=== PATIENT | female | born 1995 | race Caucasian/White ===

== ENCOUNTER 2023-10-20 09:04 | Emergency (ER) | payer BC, SELFPAY ==
--- NOTE | 2023-10-20 09:11 | ED.GENADULT ---
HPI - General Adult General Chief complaint: General Medical Stated complaint: ingrown hair l armpit Time Seen by Provider: 10/20/23 09:09 Source: patient Mode of arrival: ambulatory Limitations: no limitations History of Present Illness ED Provider: juani PEREZ narrative: Patient is a 28-year-old female presenting to the emergency department with complaint of pain and swelling to left axilla for the past 4-5 days. States she was seen for same at urgent care and advised to apply warm compresses which she has been doing without relief. States the areas increasing in size and is very painful. She has not attempted to drain the area at home. Denies fevers/chills/body aches. Denies spontaneous drainage from the area. Reports similar episode around 1 month ago, states was not treated with antibiotics at that time. complaint: Left axilla pain and swelling Onset (ago): day(s) Severity: severe Quality: aching Pain Consistency: constant Exacerbating factors: movement Associated symptoms: denies other symptoms Treatments prior to arrival: heat therapy Related Data Previous Rx's ?Medication ?Instructions ?Recorded cephalexin 500 mg capsule 500 mg PO QID #28 caps 10/20/23 Allergies Allergy/AdvReac Type Severity Reaction Status Date / Time shrimp Allergy Hives Verified 10/20/23 09:17 Review of Systems Review of Systems: As per HPI. Yes all other systems are reviewed and are negative Constitutional: Constitutional: Reports as per HPI [facility] Social History Social History Advance Directives: No Advance Directives Information Provided: No Do you have a plan to hurt others: No Plan Physical Exam ED Vital Signs: Vital Signs - 24 hr 10/20/23 09:14 10/20/23 09:18 10/20/23 09:45 Temperature 97.9 F 97.9 F 97.9 F Pulse Rate 70 70 70 Respiratory Rate 14 14 18 Blood Pressure 110/58 L 110/58 L 110/58 L Pulse Oximetry 100 100 100 Oxygen Delivery Method Room Air Room Air Room Air BMI result Body Mass Index 20.6 Vital signs have been reviewed and appear to be correct. Blood pressure normal. Heart rate normal. Respiratory rate normal. Temperature normal. Oxygen saturation normal. Const General: cooperative, healthy appearing and no acute distress Orientation/consciousness: oriented to person, oriented to place, oriented to time and patient oriented x3 Limitations: no limitations HENMT Head: Yes normocephalic and Yes atraumatic Ears: external ears normal General nose exam: Normal external nose present Face and sinus: Yes face symmetric Mouth: oropharynx normal and moist mucous membranes Throat: Yes uvula midline Eyes Pupils: Equal, round and reactive pupils present Neck Neck: Yes normal visual inspection and Yes supple Chest Chest/axillae images: 1. 2cm erythematous firm pustule, no fluctuance Resp Effort & Inspection: normal respiratory effort and able to speak in complete sentences Auscultation: clear to auscultation bilaterally Cardio Rate: regular rate Rhythm: regular rhythm Heart sounds: S1 normal heart sound present and S2 normal heart sound present GI Palpation (GI): Soft to palpation and nontender Auscultation: normoactive bowel sounds General: Yes no CVA tenderness Back/Spine/Pelvis Back: no CVA tenderness Skin General skin exam: elasticity normal and turgor normal Neuro General: oriented to person, oriented to place, oriented to time, patient oriented x3, moves all extremities, no focal motor deficits and CN's II-XI intact bilaterally Cranial nerves: Yes Equal, round and reactive pupils present Cognition (Neuro): normal cognition Extrem General: Yes full ROM, Yes no pedal edema and Yes no calf tenderness Psych Mental Status: mental status grossly normal Affect: normal affect Thought process: Normal thought process present Medical Decision Making Medical Decision Making MDM Narrative: Patient is a 28-year-old female presenting to the emergency department with complaint of pain and swelling to left axilla for the past 4-5 days. On exam patient is awake, A+Ox3, VS WNL, afebrile, normal neurological exam without focal deficits, physical exam findings as above. Given reported symptoms and physical exam findings, initial differential includes folliculitis, abscess, cellulitis, lymphadenopathy. Physical exam consistent with folliculitis. Given that at symptoms are worsening and not improving with warm compresses will treat with Keflex. Advised patient to continue applying warm compresses and assess area daily. Follow up with PCP. Return precautions discussed at bedside. Patient verbalized understanding of and agreement with plan. Differential Diagnosis Differential Diagnoses: The differential diagnosis associated with the presentation includes As per MDM. External Record Review External record reviewed: Inpatient record, Office record and Outpatient record Prescription Management I considered prescription management with: Antibiotic Discharge Plan Discharge Clinical Impression: Folliculitis of left axilla Patient Disposition: Home, Self-Care Instructions: Folliculitis (ED) Additional Instructions: You have been evaluated in the emergency department today for an infected hair follicle, also known as folliculitis. Please take your prescribed antibiotics as directed for the full course of the medication. You can use Tylenol or ibuprofen per package instructions every 6 hours as needed for pain. Continue to apply warm compresses to the area several times daily and assess the area daily for increasing redness or swelling. Please schedule an appointment for follow-up with your primary care physician as soon as possible. Return to the emergency department if you experience recurrent vomiting, fevers greater than 100.4? F, increasing area of redness, warmth around the area, foul-smelling discharge from the area, increased tenderness around the area, or any other concerning symptoms. Prescriptions: New cephalexin 500 mg capsule 500 mg PO QID Qty: 28 0RF Interventions: ED Discharge Assessment Last Done: 10/20/23 09:45 Discharge Date/Time: 10/20/23 09:46 Print Language: Kyrgyz
[2023-10-20 09:14] VITALS: BP 110/58; PULSE 70; RESP 14; TEMP 36.6; O2SAT 100; BMI 20.6
[2023-10-20 09:18] VITALS: BP 110/58; PULSE 70; RESP 14; TEMP 36.6; O2SAT 100
[2023-10-20 09:45] VITALS: BP 110/58; PULSE 70; RESP 18; TEMP 36.6; O2SAT 100
== END 2023-10-20 09:46 | disposition home or self-care (01) ==
PROVIDERS: Emergency Provider Emergency Medicine
DX: L73.8 Other specified follicular disorders (principal); R22.9 Localized swelling, mass and lump, unspecified
CPT/HCPCS: 99283

== ENCOUNTER 2024-06-02 10:04 | Emergency (ER) | payer BC, SELFPAY ==
[2024-06-02 10:11] VITALS: BP 117/70; PULSE 92; RESP 16; TEMP 37; O2SAT 99; BMI 22.1
[2024-06-02 10:33] LABS: Basophils Percent Auto 0.3 % (0-2); Eosinophils Absolute Auto 0.1 X10*3/uL (0.0-0.4); Eosinophils Percent Auto 0.4 % (0-4); Hematocrit 32.9 % (37.0-47.0); Hemoglobin 10.1 g/dl (12.0-16.0); Imm Gran Abs Auto 0.08 X10*3/uL (0.00-0.03); Imm Gran Pct Auto 0.5 % (0.0-0.4); Lymphocytes Absolute Auto 1.4 X10*3/uL (1.2-4.9); Lymphocytes Percent Auto 9.5 % (20-40); MANUAL DIFF FLAG SCAN; Mean Corpuscular HGB Conc 30.7 g/dl (31.0-35.0); Mean Corpuscular Hemoglobin 23.5 pg (27.0-33.0); Mean Corpuscular Volume 76.7 fL (80.0-98.0); Mean Platelet Volume 10.3 fL (9.4-12.3); Monocytes Absolute Auto 1.8 X10*3/uL (0.1-1.2); Monocytes Percent Auto 12.5 % (2-11); Neutrophils Absolute Auto 11.2 x10*3/uL (2.0-8.3); Neutrophils Percent Auto 76.8 % (45-73); Platelet Count 255 X10*3/uL (160-400); Red Blood Count 4.29 X10*6/uL (4.20-5.50); Red Cell Distribution Width 13.9 % (11.0-16.0); SCAN SMEAR FLAG 1; White Blood Count 14.6 X10*3/uL (4.8-10.8)
[2024-06-02 10:40] VITALS: BP 112/71; PULSE 83; RESP 14; TEMP 36.6; O2SAT 100
[2024-06-02 10:44] LABS: IDNOW Serial# 55D5AD1C; Strep A Nucleic Acid Negative (Negative)
[2024-06-02 10:51] LABS: SLIDE REVIEW VERIFIED
[2024-06-02 10:55] LABS: Alanine Aminotransferase 40 U/L (0-31); Albumin Level 4.1 g/dL (3.5-5.0); Alkaline Phosphatase 86 U/L (39-117); Anion Gap 10 (12-20); Aspartate Amino Transferase 42 U/L (5-31); Bilirubin Total 0.4 mg/dL (0.0-1.0); Blood Urea Nitrogen 10 mg/dL (9-16); Calcium 9.3 mg/dL (8.4-10.2); Carbon Dioxide 27 mmol/L (22-29); Chloride 104 mmol/L (96-108); Creatinine Clr Calc Pharmacy 105.6; Estimated Glomerular Filt Rate > 60; Glucose Random 95 mg/dL (60-115); Potassium 3.2 mmol/L (3.3-5.1); Sodium 138 mmol/L (135-145); Total Protein 7.8 g/dL (6.5-8.0)
[2024-06-02 11:08] LABS: Influenza A PCR NEGATIVE (Negative); Influenza B PCR NEGATIVE (Negative); Resp Syncy Virus RNA Qual PCR NEGATIVE (Negative); SARS COV2 PCR INHOUSE NEGATIVE (Negative)
[2024-06-02 11:13] LABS: UPreg QC Valid YES; Urine Pregnancy NEGATIVE (NEGATIVE)
[2024-06-02 11:14] LABS: Appearance Urine Cloudy; Color Urine Dark Yellow; Glucose Urine UA Negative (Negative); Leukocyte Esterase Urine Trace (Negative); Nitrite Urine Negative (Negative); Specific Gravity - Urine >= 1.030 (1.005-1.025); UMIC TRIGGER UACC YES; Urine Blood Moderate (2+) (Negative); Urine Ketones 15 mg/dL (Negative); Urine Protein 300 (3+) mg/dL (Neg-Trace)
[2024-06-02 11:25] LABS: Bacteria Urine 2+ (None Seen); Squamous Epithelial Cell Urine >20 /HPF (0-2); UACC Culture Trigger YES
--- NOTE | 2024-06-02 11:25 | ED_ITS ---
HPI - URI/Sore Throat General Chief Complaint: Upper Respiratory Symptoms Stated Complaint: sore throat Time Seen by Provider: 06/02/24 10:38 Source: patient Mode of arrival: ambulatory Limitations: no limitations History of Present Illness ED Provider: charly sylvester np HPI Narrative: Patient is a 28-year-old female who presents emergency department for evaluation. She reports 3-4 days ago she began with a headache, chills, myalgias, and a sore throat. Most of her symptoms resolved 2 days ago but the sore throat has persisted. She endorses painful swallowing. She denies any known sick contacts. She does denies concern for sexually transmitted infections of the oropharynx. Denies associated chest pain, shortness of breath, difficulty breathing, throat closing sensation. Denies fevers, headache, dizziness, neck pain, neck stiffness, nausea, vomiting, abdominal pain, numbness or tingling of the extremities, genitourinary symptoms. Related Data Previous Rx's ?Medication ?Instructions ?Recorded cephalexin 500 mg capsule 500 mg PO QID #28 caps 10/20/23 Allergies Allergy/AdvReac Type Severity Reaction Status Date / Time shrimp Allergy Hives Verified 06/02/24 10:14 Review of Systems 2 Review of Systems: Yes all other systems are reviewed and are negative PMFSH Past Medical History Attestation statement: The following information was validated with the patient. Source: old records reviewed Social History Social History Advance Directives: No Advance Directives Information Provided: Yes Physical Exam 2 Vital Signs: Vital Signs: Last Vital Signs Temp 98 F 06/02/24 10:40 Pulse 83 06/02/24 10:40 Resp 14 06/02/24 10:40 BP 112/71 06/02/24 10:40 Pulse Ox 100 06/02/24 10:40 O2 Del Method Room Air 06/02/24 10:40 BMI result Body Mass Index 22.1 Appearance: Alert.?Oriented to person, place and time. No acute distress.?Normal affect. Eyes: Pupils equal, round and reactive to light.? ENT: TM normal bilaterally. Pharynx is erythematous with 4+ tonsillar hypertrophy bilaterally, small white exudates. Uvula midline. No trismus. No drooling. Neck: Normal inspection.? Neck supple.??No cervical adenopathy CVS: Heart sounds normal. Normal heart rate and rhythm.? Pulses normal.?? Respiratory: No respiratory distress.? Lung sounds clear to auscultation bilaterally?? Abdomen: Soft and non-tender. Normoactive bowel sounds. Skin: Skin warm and dry.? Normal skin color.? ? Extremities: No lower extremity edema.? Neuro: Moves all extremities spontaneously. Sensation intact bilaterally. No motor deficits. Ambulates with normal steady gait. Medications Administered Discontinued Medications Generic Name Dose Route Start Last Admin Trade Name Pradeep PRN Reason Stop Dose Admin Dexamethasone Sodium Phosphate 10 mg 06/02/24 11:15 06/02/24 11:33 Dexamethasone Sod Phosphate 10 Mg/Ml Vial PO 06/02/24 11:16 10 mg ONCE ONE Administration Medical Decision Making Medical Decision Making MDM Narrative: Patient is a 28-year-old female with no reported past medical history presenting for evaluation of sore throat as per HPI. Had additional symptoms which have since resolved. COVID-19/influenza/RSV testing is negative. Group a strep testing is negative. On examination she was full +tonsillar hypertrophy bilaterally with small white exudates, examination not consistent with RPA/LABORATORY ANIMAL CARETAKER. Despite her degree of swelling, she is maintaining her airway adequately, managing secretions, is able to swallow soft foods and liquids without difficulty. Will obtain mono screen, although I did discuss with patient, this may be too premature of testing to detect mono, and should she continue to have ongoing symptoms over the next month or so her primary care doctor may consider repeat taking outpatient testing. She has no rashes or lesions or known allergies to suggest angioedema/anaphylaxis. She is adamant that she has no concern for sexually transmitted infections, denies testing of the oropharynx for such. Otherwise she is overall well-appearing, nontoxic, afebrile no tachycardia tachypnea or hypoxia. She is speaking clear full sentences and ambulatory with a steady gait. She received a dose of dexamethasone 10 mg orally and Toradol 15 mg IM in the emergency department. Discussed conservative treatment including rest, hydration, Tylenol/ibuprofen as needed for fever and body aches, saline nasal spray, humidifier, [id number] cold medication. Advised to follow-up with primary care provider as needed, discussed reasons to return back to the emergency department. All questions were answered. Patient discharged home in stable condition. Differential Diagnosis Differential Diagnoses: The differential diagnosis associated with the presentation includes ( See narrative above) Admission/Observation Consideration of admission/observation: Escalation of care including admission/observation considered ( see narrative above) Lab Data MDM Lab Attestation statement: I reviewed the patient's lab results. ( see narrative above) 06/02/24 10:21 06/02/24 10:21 Labs: Lab Results 06/02/24 06/02/24 06/02/24 Range/Units 10:21 11:02 11:36 WBC 14.6 H (4.8-10.8) X10*3/uL RBC 4.29 (4.20-5.50) X10*6/uL Hgb 10.1 L (12.0-16.0) g/dl Hct 32.9 L (37.0-47.0) % MCV 76.7 L (80.0-98.0) fL MCH 23.5 L (27.0-33.0) pg MCHC 30.7 L (31.0-35.0) g/dl RDW 13.9 (11.0-16.0) % Plt Count 255 (160-400) X10*3/uL MPV 10.3 (9.4-12.3) fL Immature Gran % (Auto) 0.5 H (0.0-0.4) % Neut % (Auto) 76.8 H (45-73) % Lymph % (Auto) 9.5 L (20-40) % Bowman % (Auto) 12.5 H (2-11) % Eos % (Auto) 0.4 (0-4) % Baso % (Auto) 0.3 (0-2) % Lymph # (Auto) 1.4 (1.2-4.9) X10*3/uL Bowman # (Auto) 1.8 H (0.1-1.2) X10*3/uL Eos # (Auto) 0.1 (0.0-0.4) X10*3/uL Baso # (Auto) 0.0 (0.0-0.2) X10*3/uL Abs Immat Gran (auto) 0.08 H (0.00-0.03) X10*3/uL Absolute Neuts (auto) 11.2 H (2.0-8.3) x10*3/uL Absolute Nucleated RBC 0.000 (0.0-0.012) X10*3/uL Nucleated RBC % (auto) 0.0 (0.0-0.2) /100WBC Smear Tech's Comments VERIFIED Sodium 138 (135-145) mmol/L Potassium 3.2 L (3.3-5.1) mmol/L Chloride 104 (96-108) mmol/L Carbon Dioxide 27 (22-29) mmol/L Anion Gap 10 L (12-20) BUN 10 (9-16) mg/dL Creatinine 0.72 (0.5-1.4) mg/dL Estim Creat Clear Calc 105.6 Estimated GFR > 60 Random Glucose 95 (60-115) mg/dL Calcium 9.3 (8.4-10.2) mg/dL Total Bilirubin 0.4 (0.0-1.0) mg/dL AST 42 H (5-31) U/L ALT 40 H (0-31) U/L Alkaline Phosphatase 86 (39-117) U/L Total Protein 7.8 (6.5-8.0) g/dL Albumin 4.1 (3.5-5.0) g/dL Urine Color Dark Yellow Urine Appearance Cloudy Urine pH 6.0 (5.0-9.0) Ur Specific [place] >= 1.030 H (1.005-1.025) Urine Protein 300 (3+) H (Neg-Trace) mg/dL Urine Glucose (UA) Negative (Negative) mg/dL Urine Ketones 15 (Negative) mg/dL Urine Blood Moderate (2+) H (Negative) Urine Nitrite Negative (Negative) Ur Leukocyte Esterase Trace H (Negative) Urine RBC 6-10 H (0-2) /HPF Urine WBC 11-20 H (0-5) /HPF Ur Squamous Epith Cells >20 (0-2) /HPF Urine Bacteria 2+ (None Seen) Hyaline Casts 3-5 (0-2) /LPF Urine Test NEGATIVE (NEGATIVE) Monoscreen Negative (Negative) Influenza Type A (PCR) NEGATIVE (Negative) Influenza Type B (PCR) NEGATIVE (Negative) RSV RNA Qual (PCR) NEGATIVE (Negative) SARS-CoV-2 RNA (RT-PCR) NEGATIVE (Negative) S. pyogenes GrpA ADRIEL Negative (Negative) External Record Review External record reviewed: Outpatient record Prescription Management I considered prescription management with: Pain Medication ( acetaminophen/ibuprofen) and Antibiotic Discharge Plan Discharge Clinical Impression: Acute tonsillitis Qualifiers: Streptococcal tonsillitis recurrence: non-recurrent Patient Disposition: Home, Self-Care Instructions: Tonsillitis (ED) Additional Instructions: Testing today for COVID- 19/flu/ RSV, strep throat, and mono were all negative. You were found to have significant swelling to your tonsils, for which she received a dose of oral steroids in the emergency department, and an injection of an anti-inflammatory medicine. Be sure to rest, stay well hydrated drinking plenty of fluids, eat small frequent meals. Tylenol/ibuprofen can be used as needed for fever/pain. Rjxi-vwj-pwifmar cold medications may be helpful as well for symptoms. Saline nasal spray, humidifier may be helpful for nasal congestion. You may return to the emergency department with any new or worsening symptoms or concerns , this includes but is not limited to worsening swelling or pain to the throat, difficulty breathing, feeling as though you can not swallow the spit in your mouth without choking/ gagging, chest pain, shortness of breath. Follow-up with your primary care provider as needed. Prescriptions: No Action cephalexin 500 mg capsule 500 mg PO QID Qty: 28 0RF Referrals: Physician,None [Primary Care Provider] - Print Language: Irish
[2024-06-02] MEDS: dexAMETHasone sod phosphate 10 MG/ML VIAL PO (11:33)
--- OUTSIDE RECORDS SUMMARY | 2024-06-02 11:37 | XMS_ITS | Clinical Summary ---
Author Organization [facility] Address [address] [place] [address] Care Team Providers Care Instrument Tech Name Role Phone Kalani Rosenbaum MD Primary Care Provider Allergies No known active allergies Medications fluticasone propionate (FLONASE) 50 mcg/actuation nasal spray 1 [place] by Nasal route daily. Each nostril 07/09/2020 Active Immunizations Name Administration Dates Next Due Influenza Quadravalent, MDCK , 0.5ml, preservative free (Flucelvax) 6mo and older 02/06/2020 Moderna SARS-CoV-2 COVID-19, mRNA, LNP-S, preservative free 05/27/2020,04/29/2020 Tdap Tetanus diptheria acell ular pertussis (Boostrix; Adacel) 7yo and older 09/08/2019 Surgical History Surgery Date Site/Laterality Comments OTHER SURGICAL HISTORY PROCEDURE: DENIES PREVIOUS SURGERY Family History Medical History Relation Name Comments Hypertension Maternal Grandfather Hypertension Maternal Grandmother Other: benignbreast lump Mother Breast cancer Neg Hx ovarian cancer , cervical cancer, uterine cancer, colon cancer Relation Name Status Comments Brother Alive Father Alive Maternal Grandfather Alive Maternal Grandmother Alive Mother Alive Sister Alive Social History Tobacco Use Types Packs/Day Years Used Date Smoking Tobacco: Never Smokeless Tobacco: Never Alcohol Use Standard Drinks/Week Comments Yes 0 (1 standard drink = 0.6 oz pur e alcohol) Comments Unknown Sex and Gender Information Value Date Recorded Sex Assigned at Not on file Legal Sex Female 11:28 PM EST Gender Identity Not on file Sexual Orientation Not on file Obstetrics History Plan of Treatment Health Maintenance Due Date Last Done Comments Hepatitis B Vaccines (1 of 3 - 19+ 3-dose series) 07/14/2015 Cervical Cancer Screening: P ap Smear 08/19/2021 08/19/2018 Depression Screening 01/18/2022 HIV Screening 01/18/2022 Hepatitis C Screening 01/18/2022 Social Influencers of Health Screening 01/18/2022 COVID-19 Vaccine (3 - 2023-2 5 season) 2023 05/27/2020, 04/29/2020 Influenza Vaccine (Season Ended) 2024 02/06/2020 DTaP,Tdap,and Td Vaccines (2 - Td or Tdap) 09/07/2029 09/08/2019 HIB Vaccines Aged Out No longer eligi ble based on patient's age to complete this topic HPV Vaccines Aged Out No longer eligi ble based on patient's age to complete this topic Hepatitis A Vaccines Aged Out No long er eligible based on patient's age to complete this topic IPV Vaccines Aged Out No longer eligi ble based on patient's age to complete this topic MMR Vaccines Aged Out No longer eligi ble based on patient's age to complete this topic Meningococcal ACWY Vaccine Aged Out N o longer eligible based on patient's age to complete this topic Meningococcal B Vaccine Aged Out No l onger eligible based on patient's age to complete this topic Pneumococcal Vaccine: Pediatrics (0 to 5 Years) and At-Risk Patients (6 to 64 Years) Aged Out No longer eligible b ased on patient's age to complete this topic RSV Immunization Patients Under 20 months Aged Out No longer eligible b ased on patient's age to complete this topic Varicella Vaccines Aged Out No longer eligible based on patient's age to complete this topic Procedures Procedure Name Priority Date/Time Associated Diagnosis Comments PAP SMEAR Routine 08/19/2018 from Last 3 Months or Most Recently Relevant to Health Maintenance Results * Pap Smear (08/19/2018) Pap smear no interpretation , abstracted us Historical Provider HEALTH MAINTENANCE Final Result from Last 3 Months or Most Recently Relevant to Health Maintenance Care Teams Instrument Tech Relationship Specialty Start Date End Date Kalani Rosenbaum MD [facility] - General 07/14/22
--- OUTSIDE RECORDS SUMMARY | 2024-06-02 11:37 | XMS_ITS | Clinical Summary ---
Author Organization [facility] Address [address] [place] [address] Care Team Providers Care Interior Designer Name Role Phone Unavailable Primary Care Provider Unavailabl e Source Comments PLEASE NOTE, if this patient is a minor, it may be UNLAWFUL to discuss sensitive information that is contained in these records (such as FAMILY PLANNING, MENTAL HEALTH or SUBSTANCE ABUSE) with the minor patient's parent or other person without the patient's specific authorization.[facility] Immunizations Immunization Administration Dates Next Due Moderna COVID-19 Vaccine, re d cap blue label, 12+ Primary Series 05/27/2020,04/29/2020 Social History Tobacco Use Types Packs/Day Years Used Date Smoking Tobacco: Never Assessed Social Connections Answer Date Recorded Social Connections and Isolation 0 04/29/2020 Financial Resource Strain Answer Date R ecorded Financial Resource Strain 0 2020 Stress Answer Date Recorded Stress 0 04/29/2020 Physical Activity Answer Date Recorded Physical Activity 0 04/29/2020 Food Insecurity Answer Date Recorded Food 0 04/29/2020 Transportation Needs Answer Date Record ed Transportation 0 04/29/2020 Housing Stability Answer Date Recorded Housing 0 04/29/2020 Safety and Environment Answer Date Nadir rded Safety 0 04/29/2020 Utilities Answer Date Recorded Utilities 0 04/29/2020 Employment Answer Date Recorded Employment 0 04/29/2020 Comments Unknown Sex and Gender Information Value Date Recorded Sex Assigned at Not on file Legal Sex Female 10:10 AM PST Gender Identity Not on file Sexual Orientation Not on file Plan of Treatment Health Maintenance Due Date Last Done Comments Anxiety Screening 1996 HPV Screening 1996 Hepatitis C Screening 1996 Pap + HPV 1996 Tobacco Screening 1996 HIV Screening 07/14/2011 Relationship Safety Screening/Counseling 07/14/2011 Hypertension Screening (#1) 2014 Imm-Hepatitis B (1 of 3 - 19 + 3-dose series) 07/14/2015 Cervical Cancer Screening 2017 Pap Smear 2017 [id number] ( season) 2023 021, 04/29/2020 Imm-Influenza (#1) 2023 02/06/2020, 1 03/19/2015, 11/29/2014, Additional history exists Alcohol and Drug Screen 02/16/2024 Depression Annual Screen 02/16/2024 Imm-DTaP/Tdap/Td (7 - Td or Tdap) 09/07/2029 09/08/2019, 02/25/2006, 03/17/2001, Additional history exists Cervical Ablation/Cold-Knife Conization Discontinued Cervical Cryotherapy Discontinued Colposcopy Discontinued Endometrial Biopsy Discontinued Excision/Leep Discontinued HPV Genotyping Discontinued Vaginal Pap Discontinued Vulvoscopy Discontinued Insurance [facility]
[2024-06-02 12:04] LABS: Monotest Negative (Negative)
[2024-06-02 12:48] VITALS: BP 106/69; PULSE 79; RESP 14; TEMP 36.6; O2SAT 100
== END 2024-06-02 12:52 | disposition home or self-care (01) ==
PROVIDERS: Nurse Practitioner Family; Emergency Provider Emergency Medicine Emergency Medical Services
DX: J02.0 Streptococcal pharyngitis (principal); Z03.818 Encounter for observation for suspected exposure to other biological agents ruled out; Z79.899 Other long term (current) drug therapy
CPT/HCPCS: 0241U; 36415; 80053; 81001; 81025; 85025; 86308; 87086; 87651; 99283; 99284; J1100